=== PATIENT | female | born 1975 | race Caucasian/White ===

== ENCOUNTER 2020-04-03 15:15 | Emergency (ER) | payer SELFPAY ==
[2020-04-03 15:34] VITALS: BP 159/111; PULSE 111; RESP 22; TEMP 36.7; O2SAT 99; BMI 25.4
--- NOTE | 2020-04-03 15:57 | XRR_ITS ---
PROCEDURE INFORMATION: Exam: XR Left Ribs with PA Chest, 3 Views Exam date and time: 04/03/2020 4:20 PM Age: 44 years old Clinical indication: Chest wall pain; Left; Additional info: Left chest pain, cough, SOB. Patient comes in today with complaints of left anterior chest wall pain. Patient reports that she has been coughing and having a productive sputum of yellow tinge for the last month. TECHNIQUE: Imaging protocol: XR Left ribs 3 views with PA chest. COMPARISON: No relevant prior studies available. FINDINGS: Lungs: Unremarkable. No consolidation. Pleural space: Unremarkable. No pleural effusion. No pneumothorax. Heart/Mediastinum: Unremarkable. No cardiomegaly. Bones/joints: Unremarkable. XR/XR ribs LT mn 3V w CXR1V [id number] IMPRESSION: No acute findings.
--- NOTE | 2020-04-03 15:58 | W.ED.SOB ---
HPI - SOB/Dyspnea General: Chief Complaint: Shortness of Breath/Dyspnea Stated Complaint: COUGH/RIB PAIN Time Seen by Provider: 04/03/20 15:37 History of Present Illness: HPI Narrative: Patient comes in today with complaints of left anterior chest wall pain. Patient reports that she has been coughing and having a productive sputum of yellow tinge for the last month. Patient has been treated once about 2 weeks ago with antibiotics and reports some improvement but continues to have the cough and for the last 2 days she has had this chest wall pain. Associated symptoms: Reports chest pain Review of Systems General: Reports: 10 or more systems reviewed and unremarkable except in HPI and below Card: Reports: chest pain Resp: Reports: productive cough PFSH ED PFSH: Social History (Updated 03/16/20 @ 10:09 by Екатерина Escalante LPN) Smoking and tobacco status: current every day smoker cigarettes Alcohol intake: current Alcohol intake frequency: 3 or more drinks per day Physical Exam Const: COMMON NORMALS: no acute distress and patient oriented x3 GENERAL APPEARANCE: cooperative HENMT: COMMON NORMALS: normocephalic and Normal external nose present HEAD & SCALP: normal to inspection and normocephalic NOSE: Normal external nose present MOUTH: Normal oral and palatal mucosa present THROAT: posterior oropharynx normal Eye: GENERAL EYE: appearance normal, both eyes and all related structures Neck/C-Spine: COMMON NORMALS: full ROM Lymph: LYMPHATIC: no lymphadenopathy noted Chest: CHEST: Yes tenderness (Left anterior chest wall.) Resp: COMMON NORMALS: normal respiratory effort EFFORT & INSPECTION: Yes able to speak in complete sentences AUSCULTATION: wheezes (mild scattered wheezes, good air movement) Cardio: COMMON NORMALS: regular rate and regular rhythm RATE: regular rate RHYTHM: regular rhythm GI: COMMON NORMALS: non-tender : COMMON NORMALS: Yes no CVA tenderness BLADDER/KIDNEY EXAM: Yes no CVA tenderness Back/Pelvis: COMMON NORMALS: no CVA tenderness and thoracic and lumbar spine normal to inspection Extremity: COMMON NORMALS: normal to inspection Neuro: COMMON NORMALS: patient oriented x3 and moves all extremities Psych: COMMON NORMALS: mental status grossly normal and cooperative Skin: COMMON NORMALS: no rashes or lesions noted GENERAL SKIN EXAM: no rashes or lesions noted Course Vital Signs: Vital signs: Vital Signs Temperature 98.1 F 04/03/20 15:34 Pulse Rate 111 H 04/03/20 16:29 Respiratory Rate 14 04/03/20 16:29 Blood Pressure 157/96 04/03/20 16:29 Pulse Oximetry 99 04/03/20 16:29 MDM - SOB/Dyspnea MDM Narrative: Medical decision making narrative: Patient comes in today for cough with left rib pain worse for the last 2 days. Patient appears well. Patient appears in no acute distress. Palpation of the left chest wall elicits significant pain and discomfort. Patient is very guarded with movement. Differential diagnosis includes rib fracture, rib strain, costochondritis, pneumonia. Chest x-ray notes no pneumonia or rib fracture. Reviewed exam with patient recommended treatment for costochondritis. We will go ahead and continue treating with antibiotic for patient's cough and productive sputum. No signs of COVID was noted. Patient will be given cephalexin and some hydrocodone to help with her respiratory discomfort. Patient reports understanding agreed to plan. Discharge Plan Discharge Patient Disposition: Home, Self-Care Clinical Impression: Acute costochondritis, Bronchitis Condition: Stable Prescriptions: New hydrocodone-acetaminophen 5-325 mg tablet 1 tab PO Q6H PRN (Reason: pain) Qty: 14 RF: 0 cephalexin 500 mg capsule 500 mg PO BID 7 Days Qty: 14 RF: 0 No Action azithromycin 250 mg tablet See Rx Instructions PO .COMPLEX Qty: 6 RF: 0 albuterol sulfate [Ventolin HFA] 90 mcg/actuation HFA aerosol inhaler 2 puff INHALATION Q6H PRN (Reason: shortness of breath or wheezing) Qty: 8.5 RF: 0 Discharge Diet: Usual diet Discharge Activity: Increase activity as tolerated Patient Instructions: Costochondritis (ED) Activity Restrictions/Additional Instructions: Drink plenty of water. Splint the rib area deep breathing cough every 2 hours. Take medications as directed. Follow-up with primary care in 1 week. Return to the ER for high fever or new concerns. Stand Alone Forms: Work/School Release Coding Level of Care Code ED Environmental Remediation Specialist for Jovany Fwd Exam Comprehensive
[2020-04-03 16:29] VITALS: BP 157/96; PULSE 111; RESP 14; O2SAT 99
[2020-04-03] MEDS: HYDROcodone-acetaminophen 10-325 mg Tablet 1 TAB PO (16:35)
[2020-04-03 16:58] VITALS: BP 130/88; PULSE 86; RESP 14
== END 2020-04-03 16:59 | disposition home or self-care (01) ==
PROVIDERS: Emergency Provider Nurse Practitioner Family
DX: M94.0 Chondrocostal junction syndrome [Tietze] (principal); J40 Bronchitis, not specified as acute or chronic; F17.210 Nicotine dependence, cigarettes, uncomplicated
CPT/HCPCS: 12345; 71101; 99282; 99283

== ENCOUNTER 2020-05-02 19:06 | Emergency (ER) | payer SELFPAY ==
[2020-05-02 19:21] VITALS: BP 144/90; PULSE 92; RESP 24; TEMP 36.6; O2SAT 100
--- NOTE | 2020-05-02 20:31 | XRR_ITS ---
PROCEDURE INFORMATION: Exam: XR Lumbosacral Spine, 2 or 3 Views Exam date and time: 05/02/2020 8:58 PM Age: 44 years old Clinical indication: Low back pain; Additional info: Pain/injury TECHNIQUE: Imaging protocol: XR of the lumbosacral spine, 2 or 3 views. COMPARISON: No relevant prior studies available. FINDINGS: Vertebrae: There is a transitional lumbosacral junction with partial lumbarization of S1. There is chronic anterior wedging of L1. There are moderate to severe facet degenerative changes. No acute fracture or subluxation. Soft tissues: Unremarkable. XR/XR lumbar spine 2-3V* [id number] IMPRESSION: Degenerative changes. No acute abnormality.
--- NOTE | 2020-05-02 20:47 | ED_ITS ---
HPI - Back Pain/Injury General: Chief Complaint: Back Pain/Injury Stated Complaint: back pain Time Seen by Provider: 05/02/20 20:29 Source: patient Mode of arrival: ambulatory Limitations: no limitations History of Present Illness: HPI Narrative: Yamilka is a 44-year-old female who comes in complaining of right-sided low back pain. She states that she twisted her back while she was working. She has pain along the right side but denies any radiation down her leg. She denies any loss of bowel or bladder control, fever, abdominal pain, loss of bowel or bladder control, saddle anesthesia or any leg numbness or weakness. She denies any direct blows to her back. Associated symptoms: Deny abdominal pain, chills, difficulty walking, dysuria, fatigue, fever(s), hematuria, nausea, syncope, urinary urgency or vomiting Review of Systems Const: Denies: fever(s), chills, body aches, fatigue, malaise or diaphoresis Eyes: Denies: change in vision, blurry vision, blind spots, photophobia, eye discharge or eye redness ENMT: Denies: throat pain, odynophagia, hoarseness, swelling of lips/tongue, oral sores, ear or mastoid pain, ear discharge, change in hearing or nasal discharge Card: Denies: chest pain, palpitations, irregular heart rhythm, edema, light headedness, syncope, pre-syncope, dyspnea on exertion or orthopnea Resp: Denies: dyspnea, productive cough, non-productive cough, wheezing, hemop tysis or chest congestion GI: Denies: abdominal pain, nausea, vomiting, hematemesis, coffee ground emesis, heartburn, diarrhea, constipation, GI cramping, hematochezia or melena : Denies: flank pain, dysuria, urinary frequency, urinary urgency or hematuria Musc: Reports: back pain; Denies: neck pain, extremity pain, extremity swelling, joint pain, joint swelling, joint redness, joint warmth or joint stiffness Skin/Breast: Denies: rash, pruritus, erythema, skin tenderness or jaundice Neuro: Denies: headache(s), numbness in extremities, weakness in extremities, sensory changes, lack of coordination, difficulty walking, dizziness, vertigo, confusion, Slurred speech present or seizure-like activity Rancho/Lymph: Denies: easy bruising, easy bleeding, petechiae, purpura or enlarged lymph nodes All/Imm: Denies: urticaria, throat swelling, tongue swelling, facial swelling or acute wheezing PFSH ED PFSH: Medical History COPD (chronic obstructive pulmonary disease) Social History Smoking and tobacco status: current every day smoker cigarettes Alcohol intake: current Alcohol intake frequency: 3 or more drinks per day Physical Exam Const: COMMON NORMALS: no acute distress, patient oriented x3, no limitations, healthy appearing and well nourished GENERAL APPEARANCE: cooperative, well kempt and well developed HENMT: COMMON NORMALS: normocephalic, atraumatic, external ears normal, EAC's normal and Normal external nose present HEAD & SCALP: normal to inspection, normocephalic and atraumatic FACE & SINUS: normal facial exam and face symmetric NOSE: Normal external nose present and Normal nares present EXTERNAL EAR: Yes external ears normal EXTERNAL AUDITORY CANAL: EAC's normal MOUTH: Normal oral and palatal mucosa present, lip normal and tongue normal Eye: COMMON NORMALS: Equal, round and reactive pupils present and conjunctivae normal GENERAL EYE: appearance normal, both eyes and all related structures ALIGNMENT: Yes alignment normal PERIORBITAL: periorbital findings normal EYELID: eyelids normal CONJUNCTIVA: Yes conjunctivae normal SCLERA: sclerae normal PUPIL: Yes Equal, round and reactive pupils present Neck/C-Spine: COMMON NORMALS: full ROM, no lymphadenopathy, supple, no meningeal signs and no JVD GENERAL: Yes normal visual inspection and Yes trachea midline Chest: COMMONS NORMALS: normal inspection of the chest and normal palpation of entire chest wall Resp: COMMON NORMALS: normal respiratory effort, No retractions and No use of accessory muscles EFFORT & INSPECTION: Yes able to speak in complete sentences and Yes symmetric chest movement AUSCULTATION: no crackles, no rales, no rhonchi and no wheezes Cardio: COMMON NORMALS: no JVD, regular rate, regular rhythm, S1 normal heart sound present and S2 normal heart sound present RATE: regular rate RHYTHM: regular rhythm HEART SOUNDS: S1 normal heart sound present, S2 normal heart sound present, no click, no gallops, no murmurs, no rubs and abnormal split S2 GI: COMMON NORMALS: Soft to palpation and No hepatosplenomegaly present PALPATION: Yes Soft to palpation, No Tenderness to palpation present (GI), No Guarding due to palpation present (GI), No Rigid due to palpation, Yes No hepatosplenomegaly present, No Hernia present, No Palpable mass present and No Pulsatile mass present : COMMON NORMALS: Yes no CVA tenderness BLADDER/KIDNEY EXAM: Yes no CVA tenderness EXTERNAL FEMALE EXAM: No Hernia present Back/Pelvis: COMMON NORMALS: no CVA tenderness OTHER: Mild tenderness to palpation along the right upper and middle lumbar paraspinal muscles. No spinous process tenderness. No overlying erythema or swelling or ecchymosis. Extremity: COMMON NORMALS: normal to inspection, full ROM, capillary refill normal, no joint enlargement, no clubbing, cyanosis or edema and no calf tenderness Neuro: COMMON NORMALS: patient oriented x3, CN's II-XII intact bilaterally, moves all extremities, no focal motor deficits and no sensory deficits noted MENINGEAL SIGNS: Yes no meningeal signs SPEECH: speech normal Psych: COMMON NORMALS: mental status grossly normal, Normal thought process present, cooperative, normal affect, speech normal and activity/motor behavior normal APPEARANCE: Yes well kempt SPEECH: Yes normal speech THOUGHT PROCESS: Normal thought process present Skin: COMMON NORMALS: no rashes or lesions noted, turgor normal, no jaundice, no petechiae and no mottling GENERAL SKIN EXAM: no rashes or lesions noted and turgor normal Course Vital Signs: Vital signs: Vital Signs Temperature 97.9 F 05/02/20 19:21 Pulse Rate 82 05/02/20 23:44 Respiratory Rate 18 05/02/20 23:44 Blood Pressure 135/74 05/02/20 23:44 Pulse Oximetry 99 05/02/20 23:44 MDM - Back Pain/Injury MDM Narrative: Medical decision making narrative: Patient has no sign of CRAFTI as a cause of her pain. Patient has no radiation down her leg to think herniated disc. There is no sign of , urinary tract infection, deep space infection or acute trauma. I will medicate her for her pain. Lab Data: Labs: Lab Results 05/02/20 05/02/20 Range/Units 21:55 21:55 HCG, Qual Negative (Negative) Urine Color Yellow (Yellow) Urine Appearance Clear (CLEAR) Urine pH 6 (5-7) Ur Specific Gravit y 1.015 (1.005-1.030) Urine Protein Neg (Negative) Urine Glucose (UA) Norm (Normal) Urine Ketones 1+ H (Negative) Urine Blood Neg (Negative) Urine Nitrate Negative (Negative) Urine Bilirubin Neg (NEGATIVE) Urine Urobilinogen Norm (Negative) mg/dL Ur Leukocyte Chelsea ase Negative (Negative) Imaging Data^: Lumbar spine: My impression: No acute fractures or dislocations. Discharge Plan Discharge Patient Disposition: Home, Self-Care Clinical Impression: Strain of lumbar region Qualifiers: Encounter type: initial encounter Qualified Code(s): S39.012A - Strain of muscle, fascia and tendon of lower back, initial encounter Condition: Stable Prescriptions: New cyclobenzaprine 10 mg tablet 10 mg PO TID PRN (Reason: muscle spasm) Qty: 30 RF: 0 ibuprofen 800 mg tablet 800 mg PO TID PRN (Reason: pain) Qty: 30 RF: 0 No Action azithromycin 250 mg tablet See Rx Instructions PO .COMPLEX Qty: 6 RF: 0 albuterol sulfate [Ventolin HFA] 90 mcg/actuation HFA aerosol inhaler 2 puff INHALATION Q6H PRN (Reason: shortness of breath or wheezing) Qty: 8.5 RF: 0 hydrocodone-acetaminophen 5-325 mg tablet 1 tab PO Q6H PRN (Reason: pain) Qty: 14 RF: 0 Discharge Orders: Discharge Order (Routine); Ordered 05/02/20 Ordered By: Cheryle Cantu Referrals: Karen Dutta DO [Physician] - 1-3 days Discharge Diet: Advance as tolerated Discharge Activity: Increase activity as tolerated Patient Instructions: Low Back Strain (ED) Activity Restrictions/Additional Instructions: Please return to the ER immediately for any of the signs or symptoms listed on your discharge instruction sheets, worsening/changing of your symptoms, you are not getting better as quickly as expected, or for ANY other cause or concerns. Return to the ER for increased pain, loss of bowel or bladder control, fever, vomiting, or for any other cause for concern. Stand Alone Forms: Work/School Release Discharge Date/Time: 05/02/20 23:45 Coding Level of Care Code ED Pipeline Gang Supervisor for Jovany Conti
[2020-05-02] MEDS: cyclobenzaprine 10 mg Tablet PO (20:49)
[2020-05-02] MEDS: HYDROcodone-acetaminophen 5-325 mg Tablet 1 TAB PO (20:50)
[2020-05-02 22:52] LABS: Add Urine Microscopic? NO
[2020-05-02 23:13] LABS: Bilirubin Urine Neg (NEGATIVE); Blood Urine Neg (Negative); Glucose Urine UA Norm (Normal); Ketones Urine 1+ (Negative); Leukocyte Esterase Urine Negative (Negative); Nitrate Urine Negative (Negative); Protein Urine Neg (Negative); Specific Gravity, Urine 1.015 (1.005-1.030); Urine Appearance Clear (CLEAR); Urine Color Yellow (Yellow); Urobilinogen Urine Norm (Negative); pH Urine 6 (5-7)
[2020-05-02 23:15] LABS: HCG Qualitative Urine. Negative (Negative)
[2020-05-02 23:44] VITALS: BP 135/74; PULSE 82; RESP 18; O2SAT 99
== END 2020-05-02 23:45 | disposition home or self-care (01) ==
PROVIDERS: Emergency Provider Emergency Medicine
DX: S39.012A Strain of muscle, fascia and tendon of lower back, initial encounter (principal); J44.9 Chronic obstructive pulmonary disease, unspecified; F17.210 Nicotine dependence, cigarettes, uncomplicated; X50.1XXA Overexertion from prolonged static or awkward postures, initial encounter
CPT/HCPCS: 12345; 72100; 81003; 81025; 99281; 99283

== ENCOUNTER 2020-05-03 16:59 | Emergency (ER) | payer SELFPAY ==
[2020-05-03] VITALS (10 sets, daily range): BP systolic 91–135; BP diastolic 53–93; PULSE 64–127; RESP 16–24; TEMP 36.2–38.8; O2SAT 94–98; BMI 27.3
--- NOTE | 2020-05-03 17:06 | ECG_ITS ---
[facility] ED Test Date: 2020-05-03 Pat Name: Yamilka Garcia Department: Room: Gender: Female Astrochemist: : 1975 Requested By: Denisse Reaves Order Number: [id number] Sonja MD: Raghavendra Delacruz M.D. Measurements Intervals Pierson Rate: 121 P: ID: -1 QRS: 19 QRSD: 95 T: 70 QT: 326 QTc: 464 Interpretive Statements ATRIAL FLUTTER/TACHYCARDIA WITH RAPID VENTRICULAR RESPONSE ABNORMAL RHYTHM ECG No previous ECG available for comparison Electronically Signed On 05-03-2020 20:00:23 CDT by Raghavendra Delacruz M.D. [email or web address]
--- NOTE | 2020-05-03 17:08 | W.ED.ALCOHOL ---
HPI - Alcohol General: Chief Complaint: Alcohol Stated Complaint: ETOH AND SUN Time Seen by Provider: 05/03/20 17:01 Source: EMS Mode of arrival: EMS Limitations: altered mental status History of Present Illness: HPI narrative: 44-year-old female who presents here for intoxication. Patient was found outside with a bottle of vodka mostly gone. Patient been out in the sun and was unable to answer many questions per EMS. Patient is able to tell me her name and respond to painful stimuli but is quite intoxicated. Patient does have sunburn to face and temperature 102. MD complaint: alcohol intoxication Review of Systems General: Reports: ROS unobtainable due to mental status PFS ED PFSH: Medical History (Updated 05/03/20 @ 21:37 by Denisse Reaves MD) COPD (chronic obstructive pulmonary disease) Social History Smoking and tobacco status: current every day smoker cigarettes Alcohol intake: current Alcohol intake frequency: 3 or more drinks per day Physical Exam Const: COMMON NORMALS: negative for alert EXAM LIMITATIONS: altered mental status GENERAL APPEARANCE: disheveled and lethargic ORIENTATION/CONSCIOUSNESS: Yes lethargic HENMT: COMMON NORMALS: normocephalic and atraumatic HEAD & SCALP: normocephalic and atraumatic Eye: COMMON NORMALS: Equal, round and reactive pupils present PUPIL: Yes Equal, round and reactive pupils present Neck/C-Spine: COMMON NORMALS: supple and no JVD Chest: COMMONS NORMALS: normal inspection of the chest Resp: COMMON NORMALS: normal respiratory effort, No retractions, No use of accessory muscles and clear to auscultation bilaterally AUSCULTATION: clear to auscultation bilaterally Cardio: COMMON NORMALS: no JVD, regular rate and No murmurs present (Cardio) RATE: regular rate GI: COMMON NORMALS: Normal to inspection, nondistended, normoactive bowel sounds present, Soft to palpation, non-tender and No hepatosplenomegaly present PALPATION: Yes Soft to palpation and Yes No hepatosplenomegaly present Extremity: COMMON NORMALS: normal to inspection Neuro: SENSORIUM/ORIENTATION: No alert and Yes lethargic OTHER: Able to tell me her name but is unable to answer any other questions Psych: COMMON NORMALS: negative for mental status grossly normal APPEARANCE: Yes disheveled Skin: NARRATIVE SKIN EXAM: Sunburn to face Course Vital Signs: Vital signs: Vital Signs Temperature 978 F H 05/04/20 00:04 Pulse Rate 63 05/04/20 00:04 Respiratory Rate 18 05/04/20 00:04 Blood Pressure 139/102 05/04/20 00:04 Pulse Oximetry 98 05/04/20 00:04 MDM - Alcohol MDM Narrative: Medical decision making narrative: Yamilka presents with alcohol intoxication. Patient is now sober and able to ambulate. Patient's lab work here is normal besides her alcohol level. Patient is stable for discharge and is to follow-up primary care doctor in 3 to 5 days and return if worsening. Lab Data: Labs: Lab Results 05/03/20 05/03/20 05/03/20 Range/Units 17:17 17:17 17:32 WBC 6.2 (4.0-10.0) 10^3/ uL RBC 4.67 (4.1-5.3) 10^6/u L Hgb 9.8 L (11.5-15.3) g/dL Hct 34.5 L (37.0-47.0) % MCV 73.9 L (81-99) fL MCH 21.0 L (28.0-34.0) pg MCHC 28.4 L (30.0-36.0) g/dL RDW 18.0 H (12.1-15.1) % Plt Count 381 (130-400) 10^3/c mm MPV 9.8 (7.4-10.4) fL Neut % (Auto) 71.0 % Lymph % (Auto) 19.1 % Josephine % (Auto) 5.8 % Eos % (Auto) 1.5 % Baso % (Auto) 2.4 % Neut # (Auto) 4.4 (1.8-7.7) 10^3/u L Lymph # (Auto) 1.2 (0.8-4.8) 10^3/u L Josephine # (Auto) 0.4 (0.2-0.9) 10^3/u L Eos # (Auto) 0.1 (0.0-0.8) 10^3/u L Baso # (Auto) 0.2 H (0.0-0.1) 10^3/u L Nucleated RBC % (a uto) 0 % Nucleated RBCs # 0.0 /100WBC Sodium 139 (136-145) mmol/L Potassium 3.2 L (3.5-5.1) mmol/L Chloride 99 (98-107) mmol/L Carbon Dioxide 19 L (22-29) mmol/L Anion Gap 24.2 H (5-19) BUN 7 (6-20) mg/dL Creatinine 0.6 (0.5-0.9) mg/dL GFR Calculation 107.6 (90-130) mL/min Glucose 275 H (65-115) mg/dL POC Glucose 199 (70-110) mg/dL Calculated Osmolal ity 294 (285-295) mOsm/k g Calcium 8.6 (8.5-10.5) mg/dL Total Bilirubin 0.3 (0.15-1.2) mg/dL AST 87 H (0-32) U/L ALT 85 H (0-33) U/L Alkaline Phosphata se 69 (35-105) IU/L Creatine Kinase 106 (26-192) U/L Total Protein 7.3 (6.6-8.7) g/dL Albumin 4.5 (3.5-5.2) g/dL Globulin 2.8 (1.3-4.6) g/dL HCG, Qual (Negative) Salicylates < 0.3 L (3-10) mg/dL Urine Opiates Scre en (Negative) ng/mL Acetaminophen < 5.0 L (10-30) ug/mL Ur Barbiturates Sc reen (Negative) ng/mL Ur Phencyclidine S crn (Negative) ng/mL Ur Amphetamines Sc reen (Negative) ng/mL U Benzodiazepines Scrn (Negative) ng/mL Urine Cocaine Scre en (Negative) ng/mL U Marijuana (THC) Screen (Negative) ng/mL Ethyl Alcohol 376 H* (0-10) mg/dL 05/03/20 05/03/20 Range/Units 17:35 17:35 WBC (4.0-10.0) 10^3/ uL RBC (4.1-5.3) 10^6/u L Hgb (11.5-15.3) g/dL Hct (37.0-47.0) % MCV (81-99) fL MCH (28.0-34.0) pg MCHC (30.0-36.0) g/dL RDW (12.1-15.1) % Plt Count (130-400) 10^3/c mm MPV (7.4-10.4) fL Neut % (Auto) % Lymph % (Auto) % Josephine % (Auto) % Eos % (Auto) % Baso % (Auto) % Neut # (Auto) (1.8-7.7) 10^3/u L Lymph # (Auto) (0.8-4.8) 10^3/u L Josephine # (Auto) (0.2-0.9) 10^3/u L Eos # (Auto) (0.0-0.8) 10^3/u L Baso # (Auto) (0.0-0.1) 10^3/u L Nucleated RBC % (a uto) % Nucleated RBCs # /100WBC Sodium (136-145) mmol/L Potassium (3.5-5.1) mmol/L Chloride (98-107) mmol/L Carbon Dioxide (22-29) mmol/L Anion Gap (5-19) BUN (6-20) mg/dL Creatinine (0.5-0.9) mg/dL GFR Calculation (90-130) mL/min Glucose (65-115) mg/dL POC Glucose (70-110) mg/dL Calculated Osmolal ity (285-295) mOsm/k g Calcium (8.5-10.5) mg/dL Total Bilirubin (0.15-1.2) mg/dL AST (0-32) U/L ALT (0-33) U/L Alkaline Phosphata se (35-105) IU/L Creatine Kinase (26-192) U/L Total Protein (6.6-8.7) g/dL Albumin (3.5-5.2) g/dL Globulin (1.3-4.6) g/dL HCG, Qual Negative (Negative) Salicylates (3-10) mg/dL Urine Opiates Scre en Positive H (Negative) ng/mL Acetaminophen (10-30) ug/mL Ur Barbiturates Sc reen Negative (Negative) ng/mL Ur Phencyclidine S crn Negative (Negative) ng/mL Ur Amphetamines Sc reen Negative (Negative) ng/mL U Benzodiazepines Scrn Negative (Negative) ng/mL Urine Cocaine Scre en Negative (Negative) ng/mL U Marijuana (THC) Screen Negative (Negative) ng/mL Ethyl Alcohol (0-10) mg/dL EKG Data^: EKG 1: Attestation: I personally reviewed and interpreted this EKG as follows: EKG interpretation date: 05/03/20 EKG interpretation time: 17:19 Interpretation: sinus tach hr [address] or t wave abnormalities qrs 95 qtc 398 Discharge Plan Discharge Patient Disposition: Home, Self-Care Clinical Impression: Alcoholic intoxication Qualifiers: Complication of substance-induced condition: uncomplicated Qualified Code(s): F10.920 - Alcohol use, unspecified with intoxication, uncomplicated Condition: Stable Prescriptions: No Action azithromycin 250 mg tablet See Rx Instructions PO .COMPLEX Qty: 6 RF: 0 albuterol sulfate [Ventolin HFA] 90 mcg/actuation HFA aerosol inhaler 2 puff INHALATION Q6H PRN (Reason: shortness of breath or wheezing) Qty: 8.5 RF: 0 hydrocodone-acetaminophen 5-325 mg tablet 1 tab PO Q6H PRN (Reason: pain) Qty: 14 RF: 0 cyclobenzaprine 10 mg tablet 10 mg PO TID PRN (Reason: muscle spasm) Qty: 30 RF: 0 ibuprofen 800 mg tablet 800 mg PO TID PRN (Reason: pain) Qty: 30 RF: 0 Discharge Orders: Discharge Order (Routine); Ordered 05/03/20 Ordered By: Denisse Reaves Discharge Diet: Advance as tolerated Discharge Activity: Resume usual activity Patient Instructions: Alcohol Intoxication (ED) Discharge Date/Time: 05/04/20 00:04 Coding Level of Care Code ED Chip Mixing Machine Operator for Chg Fwd Exam Comprehensive
[2020-05-03] MEDS: sodium chloride 0.9% 1,000 ML 999 ML IV ×2 (17:21→18:14)
[2020-05-03 17:23] LABS: Basophils # 0.2 10^3/uL (0.0-0.1); Basophils % 2.4 %; Eosinophils # 0.1 10^3/uL (0.0-0.8); Eosinophils % 1.5 %; Hematocrit 34.5 % (37.0-47.0); Hemoglobin 9.8 g/dL (11.5-15.3); Lymphocytes # 1.2 10^3/uL (0.8-4.8); Lymphocytes % 19.1 %; Mean Corpuscular HGB Conc 28.4 g/dL (30.0-36.0); Mean Corpuscular Volume 73.9 fL (81-99); Mean Platelet Volume 9.8 fL (7.4-10.4); Monocytes # 0.4 10^3/uL (0.2-0.9); Monocytes % 5.8 %; Neutrophils # 4.4 10^3/uL (1.8-7.7); Nucleated Red Blood Cells % 0 %; Platelet Count 381 10^3/cmm (130-400); Red Blood Count 4.67 10^6/uL (4.1-5.3); White Blood Count 6.2 10^3/uL (4.0-10.0)
[2020-05-03 17:35] LABS: Glucose Point of Care 199 mg/dL (70-110)
[2020-05-03 17:40] LABS: Alanine Aminotransferase 85 U/L (0-33); Albumin Level 4.5 g/dL (3.5-5.2); Alkaline Phosphatase 69 IU/L (35-105); Anion Gap 24.2 (5-19); Aspartate Amino Transferase 87 U/L (0-32); Blood Urea Nitrogen 7 mg/dL (6-20); Calcium 8.6 mg/dL (8.5-10.5); Carbon Dioxide 19 mmol/L (22-29); Chloride 99 mmol/L (98-107); Creatine Phosphokinase 106 U/L (26-192); Globulin 2.8 g/dL (1.3-4.6); Glomerular Filtration Rate 107.6 mL/min (90-130); Glucose 275 mg/dL (65-115); Osmolality Calculated 294 mOsm/kg (285-295); Potassium 3.2 mmol/L (3.5-5.1); Sodium 139 mmol/L (136-145); Total Bilirubin 0.3 mg/dL (0.15-1.2); Total Protein 7.3 g/dL (6.6-8.7)
--- NOTE | 2020-05-03 17:45 | PC.NURSE ---
Upon arrival patients rectal temperature was checked, 102 degreees, cool wet sheet and ice applied to patient in attempts to cool patient. Along with NS fluids started
[2020-05-03 18:10] LABS: Acetaminophen < 5.0 ug/mL (10-30); Salicylate < 0.3 mg/dL (3-10)
[2020-05-03 18:11] LABS: Alcohol Level 376 mg/dL (0-10)
[2020-05-03 18:18] LABS: HCG Qualitative Urine. Negative (Negative)
[2020-05-03 18:26] LABS: Amphetamines Screen Urine Negative (Negative); Barbiturates Screen Urine Negative (Negative); Benzodiazepines Screen Urine Negative (Negative); Cocaine Screen Urine Negative (Negative); Opiate Screen Urine Positive (Negative); PCP Screen Urine Negative (Negative); THC Screen Urine Negative (Negative)
--- NOTE | 2020-05-03 19:11 | PC.NURSE ---
Report received from DINA Mcintosh and care transferred to DINA Brito
[2020-05-03] MEDS: acetaminophen 325 mg Tablet 650 MG PO (19:16)
[2020-05-04 00:04] VITALS: BP 139/102; PULSE 63; RESP 18; TEMP 525.5; TEMP 978; O2SAT 98
== END 2020-05-04 00:04 | disposition home or self-care (01) ==
PROVIDERS: Emergency Provider Emergency Medicine
DX: F10.920 Alcohol use, unspecified with intoxication, uncomplicated (principal); J44.9 Chronic obstructive pulmonary disease, unspecified; F17.210 Nicotine dependence, cigarettes, uncomplicated
CPT/HCPCS: 12345; 36416; 80053; 80306; 80307; 81025; 82550; 82962; 85025; 93005; 96360; 96361; 99284; J7030

== ENCOUNTER 2020-05-08 21:26 | Emergency (ER) | payer SELFPAY ==
[2020-05-08 21:39] VITALS: BP 145/86; PULSE 118; RESP 14; TEMP 36.9; O2SAT 96; BMI 25.4
[2020-05-08 22:12] VITALS: BP 113/73; PULSE 68; RESP 18
[2020-05-08] MEDS: haloperidol inj 5 mg/mL INJ 1 mL IVP (22:13)
[2020-05-08] MEDS: sodium chloride 0.9% 1,000 ML 999 ML IV (22:13)
[2020-05-08 22:18] LABS: Basophils # 0.1 10^3/uL (0.0-0.1); Basophils % 1.4 %; Eosinophils # 0.2 10^3/uL (0.0-0.8); Eosinophils % 2.4 %; Hematocrit 32.7 % (37.0-47.0); Hemoglobin 9.6 g/dL (11.5-15.3); Lymphocytes # 1.6 10^3/uL (0.8-4.8); Lymphocytes % 24.6 %; Mean Corpuscular HGB Conc 29.4 g/dL (30.0-36.0); Mean Corpuscular Hemoglobin 21.2 pg (28.0-34.0); Mean Corpuscular Volume 72.2 fL (81-99); Mean Platelet Volume 9.7 fL (7.4-10.4); Monocytes # 0.4 10^3/uL (0.2-0.9); Monocytes % 6.8 %; Neutrophils # 4.06 10^3/uL (1.8-7.7); Neutrophils % 64.6 %; Nucleated Red Blood Cells % 0 %; Platelet Count 334 10^3/cmm (130-400); Red Blood Count 4.53 10^6/uL (4.1-5.3); Red Cell Distribution Width 18.4 % (12.1-15.1); White Blood Count 6.3 10^3/uL (4.0-10.0)
[2020-05-08 22:30] LABS: HCG, Serum Qual Negative (Negative)
[2020-05-08 22:36] LABS: Alanine Aminotransferase 59 U/L (0-33); Albumin Level 4.5 g/dL (3.5-5.2); Alkaline Phosphatase 57 IU/L (35-105); Anion Gap 15.2 (5-19); Aspartate Amino Transferase 82 U/L (0-32); Blood Urea Nitrogen 7 mg/dL (6-20); Calcium 9.2 mg/dL (8.5-10.5); Carbon Dioxide 25 mmol/L (22-29); Chloride 103 mmol/L (98-107); Globulin 2.7 g/dL (1.3-4.6); Glomerular Filtration Rate 132.8 mL/min (90-130); Glucose 107 mg/dL (65-115); Magnesium 1.9 mg/dL (1.7-2.3); Osmolality Calculated 286 mOsm/kg (285-295); Potassium 3.2 mmol/L (3.5-5.1); Sodium 140 mmol/L (136-145); Total Bilirubin 0.2 mg/dL (0.15-1.2); Total Protein 7.2 g/dL (6.6-8.7)
[2020-05-08 22:41] LABS: Acetaminophen < 5.0 ug/mL (10-30); Salicylate < 0.3 mg/dL (3-10)
[2020-05-08 22:42] LABS: Alcohol Level 401 mg/dL (0-10)
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
[2020-05-08 23:51] LABS: Add Urine Microscopic? NO
[2020-05-08 23:52] LABS: Bilirubin Urine Neg (NEGATIVE); Blood Urine Neg (Negative); Glucose Urine UA Norm (Normal); Ketones Urine Negative (Negative); Leukocyte Esterase Urine Negative (Negative); Nitrate Urine Negative (Negative); Protein Urine Neg (Negative); Urine Appearance Clear (CLEAR); Urine Color Yellow (Yellow); Urobilinogen Urine Norm (Negative); pH Urine 6 (5-7)
[2020-05-09] MEDS: sodium chloride 0.9% 1,000 ML 999 ML IV (00:01)
[2020-05-09 00:02] LABS: Amphetamines Screen Urine Negative (Negative); Barbiturates Screen Urine Negative (Negative); Benzodiazepines Screen Urine Negative (Negative); Cocaine Screen Urine Negative (Negative); Opiate Screen Urine Negative (Negative); PCP Screen Urine Negative (Negative); THC Screen Urine Negative (Negative)
[2020-05-09 00:30] VITALS: BP 124/76; PULSE 74; RESP 14; O2SAT 97
[2020-05-09] MEDS: potassium chloride ER 10 mEq Tablet 40 MEQ PO (00:48)
== END 2020-05-09 00:59 | disposition home or self-care (01) ==
PROVIDERS: Emergency Provider Emergency Medicine
DX: F10.920 Alcohol use, unspecified with intoxication, uncomplicated (principal); E87.6 Hypokalemia; J44.9 Chronic obstructive pulmonary disease, unspecified; F17.210 Nicotine dependence, cigarettes, uncomplicated
CPT/HCPCS: 12345; 80053; 80306; 80307; 81003; 83735; 84703; 85025; 96361; 96374; 96375; 99283; J1630; J7030

== ENCOUNTER 2020-05-09 01:59 | Inpatient (IN) | payer SELFPAY ==
[2020-05-09] VITALS (7 sets, daily range): BP systolic 99–167; BP diastolic 63–101; PULSE 72–118; RESP 16–21; TEMP 36.5–37.1; O2SAT 94–98; BMI 24.0
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
[2020-05-09] MEDS: ketorolac 10 mg Tablet PO (02:56)
[2020-05-09 03:10] LABS: Alcohol Level 378 mg/dL (0-10)
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
[2020-05-09] MEDS: cyclobenzaprine 10 mg Tablet PO ×2 (14:31→21:08)
[2020-05-09] MEDS: trazodone 50 mg Tablet PO (21:04)
[2020-05-09] MEDS: hyDROXYzine 25 mg Capsule 50 MG PO (21:04)
[2020-05-10 05:36] VITALS: BP 167/101; PULSE 109; RESP 21; TEMP 37.1; O2SAT 98; BMI 24.0
[2020-05-10 06:32] VITALS: BP 161/93; PULSE 82; RESP 18; TEMP 36.5; O2SAT 92
[2020-05-10] MEDS: cyclobenzaprine 10 mg Tablet PO ×2 (07:49→15:44)
[2020-05-10 14:00] VITALS: BP 162/98; PULSE 94; RESP 17; TEMP 36.9; O2SAT 98
[2020-05-10] MEDS: calcium carbonate 500 mg Chew Tablet PO (15:44)
--- NOTE | 2020-05-10 18:05 | P.PN_ITS ---
Subjective NPU Subjective: Interval history: The patient is grief stricken. She cries throughout the interview, her marriage being in extremis. She tends to babble but is now making better since then she may have done with my predecessor. Medications: Reviewed: Yes Medication Review Details: Current Medications Acetaminophen (Tylenol) 650 mg PO Q4H PRN PRN Reason: MILD PAIN Benztropine Mesylate (Cogentin) 1 mg PO BID PRN PRN Reason: Mild Extrapyramidal symptoms Calcium Carbonate (Tums) 500 mg PO Q4H PRN PRN Reason: INDIGESTION Last Admin: 05/10/20 15:44 Dose: 500 mg Documented by: Camphor/Menthol/Phenol (Blistex) 1 applic TOPICAL Q1H PRN PRN Reason: DRYNESS Cyclobenzaprine HCl (Flexeril) 10 mg PO TID PRN PRN Reason: MUSCLE SPASMS Last Admin: 05/10/20 15:44 Dose: 10 mg Documented by: Diphenhydramine HCl (Benadryl) 50 mg IM ONCE PRN PRN Reason: Severe Extrapyramidal Symptoms Diphenhydramine HCl (Benadryl) 50 mg IM Q4H PRN PRN Reason: Severe Aggression Haloperidol (Haldol) 5 mg PO Q4H PRN PRN Reason: AGITATION Haloperidol Lactate (Haldol Inj) 5 mg IM Q4H PRN PRN Reason: Severe Aggression Hydroxyzine Pamoate (Vistaril) 50 mg PO Q6H PRN PRN Reason: ANXIETY Last Admin: 05/09/20 21:04 Dose: 50 mg Documented by: Ibuprofen (Motrin) 400 mg PO Q6H PRN PRN Reason: MODERATE PAIN Loperamide HCl (Imodium Capsule) 2 mg PO Q6H PRN PRN Reason: DIARRHEA Lorazepam (Ativan) 2 mg IM Q4H PRN PRN Reason: Severe Aggression Nicotine (Nicoderm 21 Mg Patch) 1 patch TRANSDERMA DAILY PRN PRN Reason: NICOTINE WITHDRAWAL Nicotine Polacrilex (Nicorette) 2 mg BUCCAL Q2H PRN PRN Reason: NICOTINE WITHDRAWAL Olanzapine (Zyprexa Zydis) 5 mg PO Q4H PRN PRN Reason: Agitation/Psychosis Ondansetron HCl (Zofran) 4 mg PO Q6H PRN PRN Reason: NAUSEA AND VOMITING Trazodone HCl (Desyrel) 50 mg PO BEDTIME PRN PRN Reason: SLEEP Last Admin: 05/09/20 21:04 Dose: 50 mg Documented by: Mental Status Exam MSE Comments: This is a 44-year-old female who looks 10 years older. Mood is profoundly dysphoric. Affect is tearful. Thought processes are scat tered and seem to be racing. Speech is slightly pressured and garbled. Eye contact is close to nil. She is bereft of insight and judgment and certainly not safe to be discharged. She is less suicidal and not homicidal. Vitals/I&O/Wt Last Vital Signs Temp 98.4 F 05/10/20 14:00 Pulse 94 05/10/20 14:00 Resp 17 05/10/20 14:00 BP 162/98 05/10/20 14:00 Pulse Ox 98 05/10/20 14:00 Weight last 48 hrs Weight 144 lb 12.8 oz Weight 140 lb Weight 140 lb Physical Exam Narrative: EXAM NARRATIVE: Const: GENERAL APPEARANCE: disheveled and odor of alcohol detected ORIENTATION/CONSCIOUSNESS: Yes oriented to person, Yes oriented to place and Yes oriented to time HENMT: COMMON NORMALS: normocephalic, external ears normal and Normal external nose present HEAD & SCALP: normocephalic FACE & SINUS: normal facial exam NOSE: Normal external nose present and No nasal discharge present EXTERNAL EAR: Yes external ears normal MOUTH: tongue normal Eye: COMMON NORMALS: Equal, round and reactive pupils present, EOMs intact bilaterally and conjunctivae normal EYELID: eyelids normal CONJUNCTIVA: Yes conjunctivae normal PUPIL: Yes Equal, round and reactive pupils present Neck/C-Spine: GENERAL: No tracheal deviation Chest: COMMONS NORMALS: normal inspection of the chest CHEST: No tenderness Resp: COMMON NORMALS: clear to auscultation bilaterally EFFORT & INSPECTION: No tachypneic, No respiratory distress, No retractions, No uses accessory muscles and No tracheal deviation AUSCULTATION: clear to auscultation bilaterally, no rhonchi, no wheezes and lung sounds not diminished Cardio: COMMON NORMALS: regular rate and regular rhythm RATE: regular rate RHYTHM: regular rhythm HEART SOUNDS: no murmurs PERIPHERAL PULSES: radial pulses present GI: INSPECTION: No abdominal distension AUSCULTATION: No Hyperactive bowel sounds present and No Hypoactive bowel sounds present PALPATION: No Guarding due to palpation present (GI) and No Rigid due to palpation PERCUSSION: no dullness to percussion and no tympanic to percussion Neuro: SENSORIUM/ORIENTATION: Yes oriented to person, Yes oriented to place and Yes oriented to time Psych: APPEARANCE: Yes unkempt ATTITUDE: Yes agitated ACTIVITY/MOTOR BEHAVIOR: Yes psychomotor slowing SPEECH: Yes slurred MOOD & AFFECT: Yes depressed mood and Yes tearful THOUGHT PROCESS: disorganized THOUGHT CONTENT: Yes Suicidality present INSIGHT: Limited insight present (Psych) JUDGEMENT: Limited judgement present (Psych) A&P Assessment and plan (1) Alcoholic intoxication: Now resolved Status: Acute Qualifiers: Complication of substance-induced condition: uncomplicated Qualified Code(s): F10.920 - Alcohol use, unspecified with intoxication, uncomplicated (2) Acute hypokalemia: Replacement underway Status: Acute (3) Suicidal ideation: Detox, millieu and pharmacotherapy will be undertaken. Discharge plan will hopefully include a recovery program. Status: Acute Involuntary Hold Information 96 Hour Hold: 96 Hour Involuntary Admission: No Attestations NPU Medical Necessity Statement*: I anticipate 5-7 midnights additional hospital stay Time Spent in Patient Care: Greater than 35 minutes (>than 50% of time spent in counselling and/or direct pt care on unit) . 45 minutes Coding Level of Care Code Acute Health Information Coder for Jovany Conti Diagnoses Alcoholic intoxication F10.920 Complication of substance-induced condition: uncomplicated Acute hypokalemia E87.6 Suicidal ideation R45.851
[2020-05-10] MEDS: hyDROXYzine 25 mg Capsule 50 MG PO (21:03)
[2020-05-10] MEDS: trazodone 50 mg Tablet PO (21:03)
[2020-05-10 22:00] VITALS: BP 151/92; PULSE 93; RESP 17; TEMP 37; O2SAT 98
[2020-05-11 06:00] VITALS: BP 147/96; PULSE 93; RESP 17; TEMP 36.6; O2SAT 98
--- NOTE | 2020-05-11 12:09 | PC.RESP ---
Smoking Cessation information sent to patient.
[2020-05-11 13:58] VITALS: BP 115/76; PULSE 93; RESP 18; TEMP 36.8; O2SAT 99
--- NOTE | 2020-05-11 16:54 | P.PN_ITS ---
Subjective NPU Subjective: Interval history: The patient has made some headway emotionally and logistically. She will undertake to get her certificate and to make various social arrangements with the assistance of our production control planner. In the meantime she is making her peace with what she has been through. There are many laughs and a few tears as she discusses her progress. Mental Status Exam MSE Comments: The patient looks clean and neat today her hair is organized. Her mood is variable, depending on the subject of discussion. Affect is appropriate. As she moves along her thought processes are integrated and free of racing, blocking or looseness of association. There is no evidence of psychosis, such as but not limited to hallucinations, delusions or ideas of reference. Speech is of normal rate and volume, without dysarthria, aprosody or pressure. Patient denies suicidal or homicidal ideation, plan or intent. Cognitive functions appear to be intact and insight and judgment are burgeoning. Vitals/I&O/Wt Last Vital Signs Temp 98.3 F 05/11/20 13:58 Pulse 93 05/11/20 13:58 Resp 18 05/11/20 13:58 BP 115/76 05/11/20 13:58 Pulse Ox 99 05/11/20 13:58 Weight last 48 hrs Weight 144 lb 12.8 oz Weight 140 lb Physical Exam Narrative: EXAM NARRATIVE: GENERAL APPEARANCE: disheveled and odor of alcohol detected ORIENTATION/CONSCIOUSNESS: Yes oriented to person, Yes oriented to place and Yes oriented to time HENMT: COMMON NORMALS: normocephalic, external ears normal and Normal external nose present HEAD & SCALP: normocephalic FACE & SINUS: normal facial exam NOSE: Normal external nose present and No nasal discharge present EXTERNAL EAR: Yes external ears normal MOUTH: tongue normal Eye: COMMON NORMALS: Equal, round and reactive pupils present, EOMs intact bilaterally and conjunctivae normal EYELID: eyelids normal CONJUNCTIVA: Yes conjunctivae normal PUPIL: Yes Equal, round and reactive pupils present Neck/C-Spine: GENERAL: No tracheal deviation Chest: COMMONS NORMALS: normal inspection of the chest CHEST: No tenderness Resp: COMMON NORMALS: clear to auscultation bilaterally EFFORT & INSPECTION: No tachypneic, No respiratory distress, No retractions, No uses accessory muscles and No tracheal deviation AUSCULTATION: clear to auscultation bilaterally, no rhonchi, no wheezes and lung sounds not diminished Cardio: COMMON NORMALS: regular rate and regular rhythm RATE: regular rate RHYTHM: regular rhythm HEART SOUNDS: no murmurs PERIPHERAL PULSES: radial pulses present GI: INSPECTION: No abdominal distension AUSCULTATION: No Hyperactive bowel sounds present and No Hypoactive bowel sounds present PALPATION: No Guarding due to palpation present (GI) and No Rigid due to palpation PERCUSSION: no dullness to percussion and no tympanic to percussion Neuro: SENSORIUM/ORIENTATION: Yes oriented to person, Yes oriented to place and Yes oriented to time Involuntary Hold Information 96 Hour Hold: 96 Hour Involuntary Admission: No Attestations NPU Medical Necessity Statement*: I anticipate 3-5 midnights stay Time Spent in Patient Care: Greater than 35 minutes (>than 50% of time spent in counselling and/or direct pt care on unit) . Coding Level of Care Code Acute Director Skills for Jovany Conti
[2020-05-11] MEDS: calcium carbonate 500 mg Chew Tablet PO (17:04)
[2020-05-11 21:06] VITALS: BP 144/82; PULSE 88; RESP 22; TEMP 36.7; O2SAT 99
[2020-05-11] MEDS: trazodone 50 mg Tablet PO (21:38)
[2020-05-11] MEDS: hyDROXYzine 25 mg Capsule 50 MG PO (21:38)
[2020-05-11] MEDS: acetaminophen 325 mg Tablet 650 MG PO (21:39)
[2020-05-12 06:00] VITALS: BP 96/67; PULSE 103; RESP 20; TEMP 36.7; O2SAT 99
[2020-05-12 14:00] VITALS: BP 105/76; PULSE 101; RESP 16; TEMP 36.7; O2SAT 98
[2020-05-12] MEDS: acetaminophen 325 mg Tablet 650 MG PO (15:14)
--- NOTE | 2020-05-12 20:01 | PM.NPN ---
Subjective NPU Subjective: Interval history: The patient is much brighter today. She talked to her workplace and her boss said that she would be welcome to return to work. She is deeply moved by this and is looking forward to doing so. She denies any suicidal or homicidal ideation, plan or intent and is, in my judgment, safe for discharge in the morning. Medications: Reviewed: Yes Medication Review Details: Current Medications Acetaminophen (Tylenol) 650 mg PO Q4H PRN PRN Reason: MILD PAIN Last Admin: 05/12/20 15:14 Dose: 650 mg Documented by: Benztropine Mesylate (Cogentin) 1 mg PO BID PRN PRN Reason: Mild Extrapyramidal symptoms Calcium Carbonate (Tums) 500 mg PO Q4H PRN PRN Reason: INDIGESTION Last Admin: 05/11/20 17:04 Dose: 500 mg Documented by: Calcium Carbonate (Tums) 500 mg PO Q4H PRN PRN Reason: INDIGESTION Camphor/Menthol/Phenol (Blistex) 1 applic TOPICAL Q1H PRN PRN Reason: DRYNESS Cyclobenzaprine HCl (Flexeril) 10 mg PO TID PRN PRN Reason: MUSCLE SPASMS Last Admin: 05/10/20 15:44 Dose: 10 mg Documented by: Diphenhydramine HCl (Benadryl) 50 mg IM ONCE PRN PRN Reason: Severe Extrapyramidal Symptoms Diphenhydramine HCl (Benadryl) 50 mg IM Q4H PRN PRN Reason: Severe Aggression Haloperidol (Haldol) 5 mg PO Q4H PRN PRN Reason: AGITATION Haloperidol Lactate (Haldol Inj) 5 mg IM Q4H PRN PRN Reason: Severe Aggression Hydroxyzine Pamoate (Vistaril) 50 mg PO Q6H PRN PRN Reason: ANXIETY Last Admin: 05/11/20 21:38 Dose: 50 mg Documented by: Ibuprofen (Motrin) 400 mg PO Q6H PRN PRN Reason: MODERATE PAIN Loperamide HCl (Imodium Capsule) 2 mg PO Q6H PRN PRN Reason: DIARRHEA Lorazepam (Ativan) 2 mg IM Q4H PRN PRN Reason: Severe Aggression Nicotine (Nicoderm 21 Mg Patch) 1 patch TRANSDERMA DAILY PRN PRN Reason: NICOTINE WITHDRAWAL Nicotine Polacrilex (Nicorette) 2 mg BUCCAL Q2H PRN PRN Reason: NICOTINE WITHDRAWAL Olanzapine (Zyprexa Zydis) 5 mg PO Q4H PRN PRN Reason: Agitation/Psychosis Ondansetron HCl (Zofran) 4 mg PO Q6H PRN PRN Reason: NAUSEA AND VOMITING Trazodone HCl (Desyrel) 50 mg PO BEDTIME PRN PRN Reason: SLEEP Last Admin: 05/11/20 21:38 Dose: 50 mg Documented by: Mental Status Exam MSE Comments: The patient looks clean and neat today and her hair is organized. Her mood is brighter and affect is appropriate. As she moves along her thought processes are integrated and free of racing, blocking or looseness of association. There is no evidence of psychosis, such as but not limited to hallucinations, delusions or ideas of reference. Speech is of normal rate and volume, without dysarthria, aprosody or pressure. Patient denies suicidal or homicidal ideation, plan or intent. Cognitive functions appear to be intact and insight and judgment are burgeoning. Also, she has hope now. Vitals/I&O/Wt Last Vital Signs Temp 98.0 F 05/12/20 14:00 Pulse 101 H 05/12/20 14:00 Resp 16 05/12/20 14:00 BP 105/76 05/12/20 14:00 Pulse Ox 98 05/12/20 14:00 05/12/20 05/12/20 05/12/20 07:59 15:59 23:59 Intake Total 236 Balance 236 Physical Exam Narrative: EXAM NARRATIVE: EXAM NARRATIVE: GENERAL APPEARANCE: disheveled and odor of alcohol detected ORIENTATION/CONSCIOUSNESS: Yes oriented to person, Yes oriented to place and Yes oriented to time HENMT: COMMON NORMALS: normocephalic, external ears normal and Normal external nose present HEAD & SCALP: normocephalic FACE & SINUS: normal facial exam NOSE: Normal external nose present and No nasal discharge present EXTERNAL EAR: Yes external ears normal MOUTH: tongue normal Eye: COMMON NORMALS: Equal, round and reactive pupils present, EOMs intact bilaterally and conjunctivae normal EYELID: eyelids normal CONJUNCTIVA: Yes conjunctivae normal PUPIL: Yes Equal, round and reactive pupils present Neck/C-Spine: GENERAL: No tracheal deviation Chest: COMMONS NORMALS: normal inspection of the chest CHEST: No tenderness Resp: COMMON NORMALS: clear to auscultation bilaterally EFFORT & INSPECTION: No tachypneic, No respiratory distress, No retractions, No uses accessory muscles and No tracheal deviation AUSCULTATION: clear to auscultation bilaterally, no rhonchi, no wheezes and lung sounds not diminished Cardio: COMMON NORMALS: regular rate and regular rhythm RATE: regular rate RHYTHM: regular rhythm HEART SOUNDS: no murmurs PERIPHERAL PULSES: radial pulses present GI: INSPECTION: No abdominal distension AUSCULTATION: No Hyperactive bowel sounds present and No Hypoactive bowel sounds present PALPATION: No Guarding due to palpation present (GI) and No Rigid due to palpation PERCUSSION: no dullness to percussion and no tympanic to percussion Neuro: SENSORIUM/ORIENTATION: Yes oriented to person, Yes oriented to place and Yes oriented to time A&P Assessment and plan (1) Alcoholic intoxication: The patient has weathered alcoholic withdrawal. Her spirits are good and she feels physically much better. Status: Acute Qualifiers: Complication of substance-induced condition: uncomplicated Qualified Code(s): F10.920 - Alcohol use, unspecified with intoxication, uncomplicated (2) Suicidal ideation: The patient's decision to avoid abusing persons and to do something constructive in her daily life is significantly reduced the risk. Status: Acute Involuntary Hold Information 96 Hour Hold: 96 Hour Involuntary Admission: No Attestations NPU Medical Necessity Statement*: I anticipate overnight stay and possibly discharge tomorrow Time Spent in Patient Care: Greater than 35 minutes (>than 50% of time spent in counselling and/or direct pt care on unit). Coding Level of Care Code Acute Automotive Worker Foreman for [facility] Diagnoses Alcoholic intoxication F10.920 Complication of substance-induced condition: uncomplicated Suicidal ideation R45.851
[2020-05-12 20:14] VITALS: BP 116/72; PULSE 95; RESP 15; TEMP 36.8; O2SAT 98
[2020-05-12] MEDS: hyDROXYzine 25 mg Capsule 50 MG PO (21:03)
[2020-05-12] MEDS: trazodone 50 mg Tablet PO (21:03)
[2020-05-12] MEDS: cyclobenzaprine 10 mg Tablet PO (21:03)
--- NOTE | 2020-05-12 21:03 | PC.NURSE ---
PRN TRAZODONE & VISTARIL PT REQUESTING SLEEP AID AND ANXIETY MED. TRAZODONE 50MG & VISTARIL 50 MG PO ADMINISTERED. WILL MONITOR FOR MEDICATION EFFECTIVENESS
[2020-05-13 06:00] VITALS: BP 111/70; PULSE 78; RESP 19; TEMP 36.6; O2SAT 98
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
[2020-05-13 10:12] VITALS: BP 111/70; PULSE 78; RESP 19; TEMP 36.6; O2SAT 98
[2020-05-13] MEDS: cyclobenzaprine 10 mg Tablet PO (10:50)
--- NOTE | 2020-05-13 10:51 | PC.NURSE ---
PRN FLEXERIL 10 MG GIVEN PO PER PT C/O SPASMS. WILL CONT TO MONITOR
== END 2020-05-13 10:58 | disposition home or self-care (01) | DRG 897 ==
LOC: ER 03:24 → NP 03:29
PROVIDERS: Emergency Medicine; Admitting Provider Psychiatry & Neurology Psychiatry; Visit Provider Psychiatry & Neurology Psychiatry
DX: F10.229 Alcohol dependence with intoxication, unspecified (principal); R45.851 Suicidal ideations; Z91.410 Personal history of adult physical and sexual abuse; J44.9 Chronic obstructive pulmonary disease, unspecified; F17.210 Nicotine dependence, cigarettes, uncomplicated
CPT/HCPCS: 12345; 36415; 80307; 99284